=== PATIENT | female | born 1990 | race Caucasian/White ===

== ENCOUNTER 2020-03-31 17:03 | Emergency (ER) | payer SELFPAY ==
[~2020-03-31] VITALS: Ht 157.5 cm; Wt 172.4 kg
[2020-03-31 17:07] VITALS: BP 142/78
[2020-03-31] MEDS ORDERED: KETOROLAC 30 MG/ML VIAL IM ONE (17:50)
[2020-03-31 18:29] VITALS: BP 140/70
== END 2020-03-31 18:29 | disposition home or self-care (01) ==
LOC: MED 17:03
DX: S83.8X1A Sprain of other specified parts of right knee, initial encounter (principal); S61.411A Laceration without foreign body of right hand, initial encounter; J45.909 Unspecified asthma, uncomplicated; W18.39XA Other fall on same level, initial encounter; Y93.89 Activity, other specified; Y92.89 Other specified places as the place of occurrence of the external cause; Y99.8 Other external cause status
CPT/HCPCS: 73562; 96372; 99283; J1885; Q0092